=== PATIENT | female | born 1965 | race Native Hawaiian/Other Pacific Islander ===

== ENCOUNTER → 2016-09-26 | Day surgery (SDC) | payer OTHER ==
[~2016-09-26] MED LIST: GLUC500C5 PO; LACTATED RINGER'S 1000 ML INJ 1,000 ML ONE; LISI-515 PO; NYST10007 TOPICAL; OMEGCAP PO; PROPOFOL 200 MG/20 ML AMP IV ONE; SPIR50TA PO; ZYRT10CA PO
--- NOTE | 2016-09-26 15:22 | GIPROC ---
[facility] [address] [facility], [id number] COLONOSCOPY PROCEDURE REPORT EXAM DATE: 09/26/2016 PATIENT NAME: Namita Quintana MR #: [id number] BIRTHDATE: 1965 ENDOSCOPIST: Chichi Espino MD ORDER #: [id number] COMPANY LABORER: Kimberley Cote RN STATUS: outpatient INDICATIONS: The patient is a 50 yr old female here for a colonoscopy due to average risk patient for colon cancer PROCEDURE PERFORMED: Colonoscopy with polypectomy MEDICATIONS: None and Per Anesthesia. PREP QUALITY: good ESTIMATED BLOOD LOSS: None CONSENT: The patient understands the risks and benefits of the procedure and understands that these risks include, but are not limited to: sedation, allergic reaction, infection, perforation and/or bleeding. Alternative means of evaluation and treatment include, among others: physical exam, x-rays, and/or surgical intervention. The patient elects to proceed with this endoscopic procedure. medical equipment was checked for proper function. Hand hygiene and appropriate measures for infection prevention was taken. After the risks, benefits and alternatives of the procedure were thoroughly explained, Informed consent was verified, confirmed and timeout was successfully executed by the treatment team. A digital exam revealed hemorrhoids The EC-[id number] ([id number] endoscope was introduced through the anus and advanced to the cecum, which was identified by both the appendix and ileocecal valve. The instrument was then slowly withdrawn as the colon was fully examined. COLON FINDINGS: Diverticulosis sigmoid,descending polyp sessile in descending colon-8 mm-hot snre polypectomy with complete removal. Retroflexed views revealed internal hemorrhoids and Retroflexed views revealed small internal hemorrhoids The scope was then completely withdrawn from the patient and the procedure terminated. PROCEDURE WITHDRAWAL TIME:6minutes ADVERSE EVENTS: There were no complications. IMPRESSIONS: 1. Diverticulosis sigmoid,descending polyp sessile in descending colon-8 mm-hot snre polypectomy with complete removal 2. Retroflexed views revealed internal hemorrhoids 3. Retroflexed views revealed small internal hemorrhoids 4. Revealed hemorrhoids RECOMMENDATIONS: 1. Await biopsy results. Biopsy results will not be ready for 7-10 days. If you don't hear from us in two weeks, call our office for results. 2. Benefiber 2 tsp daily 3. High fiber diet 4. Probiotics from any [employer] or health food store 5. Yearly rectal exams RECALL: Colonoscopy, pending biopsy results Chichi Espino MD eSigned: Chichi Espino MD 09/26/2016 3:21 PM cc: Shane Goldsmith
== END | disposition home or self-care (01) ==
LOC: ESDC 13:12
PROVIDERS: ATTEND Internal Medicine Gastroenterology
DX: K59.00 Constipation, unspecified (principal); K57.90 Diverticulosis of intestine, part unspecified, without perforation or abscess without bleeding; D12.4 Benign neoplasm of descending colon; K64.8 Other hemorrhoids
CPT/HCPCS: 00810; 45385; 88305; J7120